=== PATIENT | female | born 1970 | race Caucasian/White ===

== ENCOUNTER 2017-11-17 10:24 | Inpatient (IN) | payer BC ==
[2017-11-17] MEDS ORDERED: ONDANSETRON 4 MG/2 ML VIAL ONE (11:38)
[2017-11-17] MEDS ORDERED: Ringers Lactate 1,000 ML IV ONE (11:38)
[2017-11-17] MEDS ORDERED: FENTANYL CITR 100 MCG/2 ML ONE (11:38)
[2017-11-17 11:45] LABS: Absolute Lymphocytes (CBC) 1.6 K/uL (0.7-4.9); Absolute Monocytes 0.6 K/uL (0.1-1.3); Absolute Neutrophil 12.7 K/uL (1.8-8.0); Basophils % 0.6 % (0-1.3); Eosinophils % 0.9 % (0-4.4); Hematocrit 43.6 % (36.0-45.0); Lymphocytes % 10.7 % (15.3-44.8); MCH 31.5 pg (27.0-35.0); MCV 92.2 fL (80-100); MPV 7.4 fL (7.6-11.3); Monocytes % 3.7 % (3.3-12.3); RBC Red Blood Cell Count 4.73 M/uL (3.86-4.86)
[2017-11-17 11:57] LABS: Albumin 3.3 g/dL (3.4-5.0); Bilirubin Direct 0.2 mg/dL (0-0.2); Bilirubin Total 0.7 mg/dL (0.2-1.0); Potassium 3.2 mmol/L (3.5-5.1); Protein, Total 7.2 g/dL (6.4-8.2)
[2017-11-17] MEDS ORDERED: HYDROMORPHONE HCL 1 MG/ML INJ ONE (12:43)
--- NOTE | 2017-11-17 12:43 | RAD REPORT ---
EXAM DESCRIPTION: CT - Abdomen Pelvis W Contrast - 11/17/2017 12:32 pm CLINICAL HISTORY: Abdominal pain radiating to the back, history of pancreatitis, prior hysterectomy and cholecystectomy COMPARISON: None. TECHNIQUE: Biphasic, helical CT imaging of the abdomen and pelvis was performed following 100 ml non -ionic IV contrast. No oral contrast administered. All CT scans are performed using dose optimization technique as appropriate and may include automated exposure control or mA/KV adjustment according to patient size. FINDINGS: No suspicious findings in the lung bases. No pericardial thickening or effusion. Liver shows a diffuse fatty infiltration pattern. No focal liver lesion identified. No splenic abnorm ality. Cholecystectomy clips are present. No biliary tree dilatation. Biliary tree diameter is normal for a post cholecystectomy patient. Duct stones can be occult. No solid or cystic mass of the pancreas. There is a moderate amount of fluid in stranding surrounding the entirety of the pancreas. This extends along the anterior right and left pararenal fascia. No nixon spicion for a duodenal or pancreatic mass. Minimal wall thickening of the duodenal C-loop. Symmetric renal function is seen with no hydronephrosis or suspicious renal mass. No pyelonephritis o r acute renal parenchymal process. Contracted urinary bladder shows no suspicious finding. Uterus is absent. Ovaries are absent or atrophic. No adnexal mass. No gastric abnormality. No acute colon finding. No free air or pneumatosis. No other area of inflamm atory stranding. No hernia, mass or bulky lymphadenopathy. No adrenal abnormality. No suspicious bony findings. IMPRESSION: Moderate severity acute pancreatitis. No mass, abscess or pseudocyst. Diffuse fatty infiltration of the liver. Biliary tree dilatation is within normal range for a post ch olecystectomy patient.
--- NOTE | 2017-11-17 12:59 | ER ---
Nurse's Notes [facility] Name: Pamela Machado Age: 47 yrs Sex: Female : 1970 Arrival Date: 11/17/2017 Time: 10:30 Bed 20 Private MD: Out, [facility] Diagnosis: Acute pancreatitis Presentation: 11/17 10:47 Presenting complaint: Patient states: " I am having bad abdominal pain that radiates to ph my back, it feels like when I've had pancreatitis in the past but worse." Reports upper abdominal pain and nausea, denies V/D or fever. Transition of care: patient was not received from another setting of care. Onset of symptoms was November 17, 2017. Risk Assessment: Do you want to hurt yourself or someone else? Patient reports no desire to harm self or others. Initial Sepsis Screen: Does the patient meet any 2 criteria? No. Patient's initial sepsis screen is negative. Does the patient have a suspected source of infection? No. Patient's initial sepsis screen is negative. Care prior to arrival: None. 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 - Social history:: Smoking status: Patient/guardian denies using tobacco. - Ebola Screening: : Patient negative for fever greater than or equal to 101.5 degrees Fahrenheit, and additional compatible Ebola Virus Disease symptoms Patient denies exposure to infectious person Patient denies travel to an Ebola-affected area in the 21 days before illness onset No symptoms or risks identified at this time. Screenin:57 Abuse screen: Denies threats or abuse. Denies injuries from another. Nutritional ed1 screening: No deficits noted. Tuberculosis screening: No symptoms or risk factors identified. Fall Risk None identified. Assessment: 10:57 General: Appears uncomfortable, Behavior is calm, cooperative. Pain: Complains of pain ed1 in abdomen Pain radiates to back Pain currently is 10 out of 10 on a pain scale. Quality of pain is described as sharp, shooting, stabbing, Pain began 1 day ago. Is continuous. Neuro: Level of Consciousness is awake, alert, obeys commands, Oriented to person, place, time, situation. Cardiovascular: Denies chest pain, Heart tones S1 S2 present. Respiratory: Airway is patent Respiratory effort is even, unlabored, Respiratory pattern is regular, symmetrical, Breath sounds are clear bilaterally. GI: Abdomen is non-distended, Bowel sounds present X 4 quads. Abd is soft and non tender X 4 quads. Reports nausea. : No signs and/or symptoms were reported regarding the genitourinary system. EENT: No signs and/or symptoms were reported regarding the EENT system. Derm: Skin is intact, is healthy with good turgor, Skin is pink, warm \\T\\ dry. Musculoskeletal: Circulation, motion, and sensation intact. Range of motion: intact in all extremities. 11:00 Reassessment: I agree with previous assessment. hb 12:08 Reassessment: Patient appears in no apparent distress at this time. No changes from ed1 previously documented assessment. Patient and/or family updated on plan of care and expected duration. Pain level reassessed. Patient is alert, oriented x 3, equal unlabored respirations, skin warm/dry/pink. Patient states symptoms have not improved. 12:35 Reassessment: Pt returned from CT and reports worsening abdominal pain. Ervin notified. ed1 No new orders received at this time. 14:06 Reassessment: Patient appears in no apparent distress at this time. No changes from ed1 previously documented assessment. Patient and/or family updated on plan of care and expected duration. Pain level reassessed. Patient is alert, oriented x 3, equal unlabored respirations, skin warm/dry/pink. Patient states symptoms have not improved. 14:08 Reassessment: Pt ambulatory to bathroom. Pt reports an episode of vomiting. ed1 14:45 Reassessment: Patient appears in no apparent distress at this time. No changes from ed1 previously documented assessment. Patient and/or family updated on plan of care and expected duration. Pain level reassessed. Patient is alert, oriented x 3, equal unlabored respirations, skin warm/dry/pink. Patient states symptoms have not improved. Vital Signs: 10:46 BP 115 / 77; Pulse 83; Resp 26; Temp 97.6; Pulse Ox 100% on R/A; Weight 89.81 kg; ph Height 5 ft. 0 in. (152.40 cm); Pain 10/10; 12:08 BP 122 / 80; Pulse 80; Resp 17; Pulse Ox 100% on R/A; Pain 9/10; ed1 14:06 BP 132 / 75; Pulse 80; Resp 17; Temp 98.4(O); Pulse Ox 100% on R/A; Pain 9/10; ed1 10:46 Body Mass Index 38.67 (89.81 kg, 152.40 cm) ph ED Course: 10:30 Patient arrived in ED. sb2 10:30 Out, of Town is Private Physician. sb2 10:48 Triage completed. ph 10:49 Ervin Harkins PA is PHCP. jmm 10:49 Malik Martinez MD is Attending Physician. jmm 10:51 Arm band placed on. ph 10:53 Bri Robertson LVN is Primary Nurse. ed1 10:57 Patient has correct armband on for positive identification. Placed in gown. Bed in low ed1 position. Call light in reach. 11:15 Inserted saline lock: 22 gauge in left antecubital area, using aseptic technique. Blood ed1 collected. 12:[address] via wheelchair. mw3 12:32 CT Abd/Pelvis - W/Contrast In Process Unspecified. EDMS 12:58 Aidee Duval MD is Hospitalizing Provider. jmm 14:17 No provider procedures requiring assistance completed. Patient admitted, IV remains in ed1 place. intact, No redness/swelling at site. Administered Medications: 11:47 Drug: Lactated Ringers Solution 1000 ml Route: IV; Rate: 1000 TKO; Site: left ph antecubital; 14:28 Follow up: IV Status: Completed infusion; IV Intake: 1000ml ed1 11:47 Drug: Zofran 4 mg Route: IVP; Site: left antecubital; ph 13:06 Follow up: Response: Nausea is decreased ed1 11:47 Drug: fentaNYL (PF) 50 mcg Route: IVP; Site: left antecubital; ph 13:06 Follow up: Response: Pain is unchanged, physician notified ed1 12:47 Drug: Dilaudid 1 mg Route: IVP; Site: left antecubital; ph 13:49 Follow up: Response: Pain is unchanged, physician notified ed1 Intake: 14:28 IV: 1000ml; Total: 1000ml. ed1 Outcome: 12:59 Decision to Hospitalize by Provider. jackie 14:45 Admitted to Med/surg accompanied by tech, family with patient, via wheelchair, room ed1 206, with chart, Report called to JORGE Moore 14:45 Condition: stable 14:45 Discharge instructions given to patient, Instructed on the need for admit, Demonstrated understanding of instructions. 14:48 Patient left the ED. ed1 Signatures: Dispatcher [employer] EDMS Ervin Harkins PA PA jm Bri Robertson, EMPLOYMENT PROGRAMS ANALYST EMPLOYMENT PROGRAMS ANALYST ed1 Elicia Iraheta RN RN Deneen Onofre, JORGE RN Yesica Todd sb2 Yancy Rojas mw3
--- NOTE | 2017-11-17 12:59 | EDPHYS ---
Physician Documentation [facility] Name: Pamela Machado Age: 47 yrs Sex: Female : 1970 Arrival Date: 11/17/2017 Time: 10:30 Bed 20 Private MD: Out, [facility] ED Physician Malik Martinez HPI: 11/17 11:12 This 47 yrs old Female presents to ER via Ambulatory with complaints of jmm Abdominal Pain. 11:12 The patient presents with abdominal pain in the epigastric area. Onset: The jmm symptoms/episode began/occurred gradually, 2 day(s) ago. The symptoms do not radiate. Associated signs and symptoms: Pertinent positives: nausea and vomiting. The symptoms are described as achy, sharp. This is a 47 year old female with a history of pancreatitis, HLP, hypothyroidism that presents to the ED with epigastric abdominal pain. Patient states having similar symptoms in the past with previous episodes of pancreatitis. . 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 - Social history:: Smoking status: Patient/guardian denies using tobacco. - Ebola Screening: : Patient negative for fever greater than or equal to 101.5 degrees Fahrenheit, and additional compatible Ebola Virus Disease symptoms Patient denies exposure to infectious person Patient denies travel to an Ebola-affected area in the 21 days before illness onset No symptoms or risks identified at this time. ROS: 11:18 Constitutional: Negative for fever, chills, and weight loss. jmm 11:18 Abdomen/GI: Positive for abdominal pain, nausea and vomiting. jmm 11:18 Back: Positive for radiated pain. 11:18 All other systems are negative. Exam: 11:18 Head/Face: atraumatic. Chest/axilla: Normal chest wall appearance and motion. jmm Cardiovascular: Regular rate and rhythm. No edema appreciated 11:18 Constitutional: The patient appears alert, awake, uncomfortable. 11:18 Respiratory: the patient does not display signs of respiratory distress, Respirations: normal, Breath sounds: are clear throughout. 11:18 Abdomen/GI: Inspection: abdomen appears normal, Bowel sounds: normal, Palpation: soft, moderate abdominal tenderness, in the right upper quadrant and left upper quadrant. 11:18 Back: ROM is normal. 11:18 Musculoskeletal/extremity: ROM: intact in all extremities. 11:18 Skin: Appearance: Color: normal in color. 11:18 Neuro: Orientation: is normal, Mentation: is normal, Memory: is normal. 11:18 Psych: Behavior/mood is pleasant, cooperative. Vital Signs: 10:46 BP 115 / 77; Pulse 83; Resp 26; Temp 97.6; Pulse Ox 100% on R/A; Weight 89.81 kg; ph Height 5 ft. 0 in. (152.40 cm); Pain 10/10; 12:08 BP 122 / 80; Pulse 80; Resp 17; Pulse Ox 100% on R/A; Pain 9/10; ed1 14:06 BP 132 / 75; Pulse 80; Resp 17; Temp 98.4(O); Pulse Ox 100% on R/A; Pain 9/10; ed1 10:46 Body Mass Index 38.67 (89.81 kg, 152.40 cm) ph MDM: 11:07 Patient medically screened. [facility] 12:57 Data reviewed: vital signs, nurses notes, lab test result(s), radiologic studies, CT [facility] scan. Counseling: I had a detailed discussion with the patient and/or guardian regarding: the historical points, exam findings, and any diagnostic results supporting the discharge/admit diagnosis, lab results, radiology results, the need for further work-up and treatment in the hospital. Response to treatment: the patient's symptoms have mildly improved after treatment. Physician consultation: Aidee Duval MD accepts admission. 11/17 11:09 Order name: Amylase, Serum; Complete Time: 12:16 [facility] 11/17 11:09 Order name: Basic Metabolic Panel; Complete Time: 12:16 [facility] 11/17 11:09 Order name: CBC with Diff; Complete Time: 11:49 [facility] 11/17 11:09 Order name: Creatinine for Radiology; Complete Time: 12:16 [facility] 11/17 11:09 Order name: Hepatic Function; Complete Time: 12:16 [facility] 11/17 11:09 Order name: Lipase; Complete Time: 12:16 [facility] 11/17 11:09 Order name: Urine Microscopic Only; Complete Time: 13:04 [facility] 11/17 12:56 Order name: Urine Dipstick--Ancillary (enter results); Complete Time: 13:04 dm5 11/17 13:46 Order name: Triglycerides Level; Complete Time: 15:11 EDMS 11/17 13:46 Order name: Amylase Level EDMS 11/17 13:46 Order name: Amylase Level EDMS 11/17 13:46 Order name: Amylase Level EDMS 11/17 13:46 Order name: Amylase Level EDMS 11/17 13:46 Order name: CBC with Automated Diff EDMS 11/17 11:09 Order name: CT Abd/Pelvis - W/Contrast; Complete Time: 12:46 [facility] 11/17 13:46 Order name: CBC with Automated Diff EDMS 11/17 13:46 Order name: CBC with Automated Diff EDMS 11/17 13:46 Order name: CBC with Automated Diff EDMS 11/17 13:46 Order name: Comprehensive Metabolic Panel EDMS 11/17 13:46 Order name: Comprehensive Metabolic Panel EDMS 11/17 13:46 Order name: Comprehensive Metabolic Panel EDMS 11/17 13:46 Order name: Comprehensive Metabolic Panel EDMS 11/17 13:46 Order name: Lipase EDMS 11/17 13:46 Order name: Lipase EDMS 11/17 13:46 Order name: Lipase EDMS 11/17 13:46 Order name: Lipase EDMS 11/17 13:46 Order name: Magnesium EDMS 11/17 13:46 Order name: Magnesium EDMS 11/17 14:36 Order name: LDL, Direct; Complete Time: 15:11 [facility] 11/17 11:09 Order name: IV Saline Lock; Complete Time: 12:08 [facility] 11/17 11:09 Order name: Labs collected and sent; Complete Time: 12:08 [facility] 11/17 11:09 Order name: Urine Dipstick-Ancillary (obtain specimen); Complete Time: 13:02 [facility] 11/17 13:46 Order name: NPO EDMS Administered Medications: 11:47 Drug: Lactated Ringers Solution 1000 ml Route: IV; Rate: 1000 TKO; Site: left ph antecubital; 14:28 Follow up: IV Status: Completed infusion; IV Intake: 1000ml ed1 11:47 Drug: Zofran 4 mg Route: IVP; Site: left antecubital; ph 13:06 Follow up: Response: Nausea is decreased ed1 11:47 Drug: fentaNYL (PF) 50 mcg Route: IVP; Site: left antecubital; ph 13:06 Follow up: Response: Pain is unchanged, physician notified ed1 12:47 Drug: Dilaudid 1 mg Route: IVP; Site: left antecubital; ph 13:49 Follow up: Response: Pain is unchanged, physician notified ed1 Disposition: 11/17/17 12:59 Hospitalization ordered by Aidee Duval for Observation. Preliminary diagnosis is Acute pancreatitis. - Bed requested for Telemetry/MedSurg (observation). - Status is Observation. ed1 - Condition is Stable. - Problem is new. - Symptoms are unchanged. UTI on Admission? No Addendum: 11/19/2017 19:52 Co-signature as Attending Physician, Malik Martinez MD I agree with the assessment and w a plan of care. Signatures: Dispatcher [employer] Nay Gonzales RN RN Ervin Whitney PA PA [facility] Bri Robertson, RAILS DEVELOPER RAILS DEVELOPER ed1 Elicia Iraheta RN RN Malik Martinez MD MD wa Corrections: (The following items were deleted from the chart) 11/17 14:10 12:59 Hospitalization Ordered by Aidee Duval MD for Observation. Preliminary diagnosis dw is Acute pancreatitis. Bed requested for Telemetry/MedSurg (observation). Status is Observation. Condition is Stable. Problem is new. Symptoms are unchanged. UTI on Admission? No. [facility] 14:48 14:10 11/17/2017 12:59 Hospitalization Ordered by Aidee Duval MD for Observation. ed1 Preliminary diagnosis is Acute pancreatitis. Bed requested for Telemetry/MedSurg (observation). Status is Observation. Condition is Stable. Problem is new. Symptoms are unchanged. UTI on Admission? No. dw
[2017-11-17 13:02] LABS: Urine Bacteria <20 /HPF (<20); Urine Culture Reflex Order NOT NEEDED; Urine Mucus 1+ /HPF (NONE SEEN); Urine RBC <5 /HPF (NONE SEEN)
[2017-11-17 13:03] LABS: Urine Blood NEGATIVE (NEG); Urine Glucose NEGATIVE (NEG); Urine Protein NEGATIVE (NEG); Urine Specific Gravity 1.015 (1.005-1.030)
[2017-11-17] MEDS ORDERED: ACETAMINOPHEN 650MG/RECT SUPP PR PRN (13:38)
[2017-11-17 14:36] LABS: LDL, Direct 98 mg/dL (100-129)
[2017-11-17] MEDS: NA CHLORIDE 0.9% 1,000 ML IV SCH ×2 (15:35→21:48)
[2017-11-17] MEDS: MEPERIDINE HCL 25 MG/0.5 ML IV PRN ×2 (15:36→19:39)
[2017-11-17] MEDS: ONDANSETRON 4 MG/2 ML VIAL IV PRN ×2 (15:36→19:39)
[2017-11-17] MEDS: METRONIDAZOLE 500mg IVPB 500 MG/100 ML BAG IV SCH (16:23)
[2017-11-17] MEDS: KCL 20 MEQ/100 mL IVPB 20 MEQ/100 ML BAG IV SCH ×2 (19:56→21:50)
[2017-11-17] MEDS ORDERED: FENTANYL CITR 100 MCG/2 ML IV ONE (21:16)
[2017-11-17] MEDS: ENOXAPARIN 40 MG/0.4 ML SQ SCH (21:42)
[2017-11-17 22:09] LABS: Urine Appearance CLEAR; Urine Bilirubin NEGATIVE (NEG); Urine Blood NEGATIVE (NEG); Urine Color DK YELLOW; Urine Glucose NEGATIVE (NEG); Urine Protein TRACE (NEG); Urine Specific Gravity >=1.030 (1.005-1.030); Urine Urobilinogen 0.2 mg/dL (0.2-1.0)
[2017-11-17 22:11] LABS: Urine Microscopic Reflex ORDER UMIC
[2017-11-17 22:20] LABS: Urine Bacteria <20 /HPF (<20); Urine RBC <5 /HPF (NONE SEEN)
[2017-11-17 22:21] LABS: Urine Culture Reflex Order NOT NEEDED; Urine Mucus 1+ /HPF (NONE SEEN)
[2017-11-17] MEDS: ALPRAZOLAM 0.25 MG TABLET PO PRN (22:53)
--- NOTE | 2017-11-18 00:42 | HP ---
Date of Admission: 11/17/2017 Primary Care Physician: [place]. Chief Complaint: Abdominal pain. History Of Present Illness: The patient is a 47-year-old female with past medical history of hyperli pidemia, insomnia, hypothyroidism, Malik's esophagus, previous history of pancreatitis who comes in with abdominal pain in the epigastric region, which is constant, moderate, progressively worsening, and going on for the past couple of days. The patient also reports some nausea but no vomiting, no f tavo. The patient does report some chills and sweats. Denies any diarrhea. No blood in the stool. No chest pain or shortness of breath. The patient's pain radiates to the left side and towards her back. No alleviating or aggravating factors. The patient denies any alcohol use. The patient came into the ER for further evaluation of her symptoms. Upon arrival, her vital signs were stable. She was afebrile. Her workup revealed lipase level of 5400. Potassium was 3.2. She had an elevated wh ite count. UA was negative. CT scan of the abdomen and pelvis showed moderate-severity acute pancre atitis. No abscess or pseudocyst. The patient did have some inflammation and wall thickening of the duodenal C loop. The patient was then referred for admission. When seen in the ER, she was awake, alert, oriented x3, in some moderate distress. Past Medical History: Insomnia, hyperlipidemia, hypothyroidism, Malik's esophagus, history of prev ious pancreatitis and diverticulitis. Past Surgical History: Cholecystectomy, x3, hysterectomy, tubal ligation, appendectomy, an d hernia repair. Allergies: TO LEVAQUIN, MORPHINE, AND PENICILLIN. Medications: List reviewed. Social History: The patient denies any alcohol use, tobacco use, or illicit drug use. The patient i s , has 3 children. Independent in her activities of daily living. Family History: Parents both had coronary artery disease. Mother at the age of 42 from complications of bypass surgery. Grandmother had pulmonary hypertension. Review of Systems: An 11-point system reviewed, negative except as per HPI. Physical Examination: Vital Signs: Blood pressure is 158/77, pulse 83, respirations 26, temperature 97.6, O2 100% on room air. General: Awake, alert, oriented x3, obese female, in pain, ill-appearing. HEENT: Normocephalic, atraumatic. PERRLA. EOMI. Dry mucous membranes. Oropharynx is clear. Conj unctiva anicteric. Neck: Supple. No JVD. Trachea midline. CV: S1, S2. Regular rate and rhythm. Peripheral pulses are present. Respiratory: Clear to auscultation bilaterally. No wheezing. No stridor. No use of accessory musc les. Gastrointestinal: Abdomen is soft. Tenderness to palpation in the epigastric region. Positive volu ntary guarding. No rebound. Bowel sounds positive. Extremities: No clubbing, cyanosis, or edema. No calf tenderness. Neuro: Cranial nerves 2 through 12 intact. No focal neurological deficit. Speech is normal. Stren gth is 5/5 in bilateral upper and lower extremities. Sensation intact to light touch. Skin: No rashes. Normal skin turgor. Psych: Mood is anxious. Affect is congruent with mood. Insight and judgment are fair. Laboratory Data: Sodium 135, potassium 3.2, chloride 103, CO2 24, BUN 7, creatinine 0.7, glucose 119 , calcium 8.2, total bilirubin 0.7, AST 37, ALT 40, alkaline phosphatase 120, albumin 3.3, amylase 15 0, lipase 5499. WBC 15.1, H and H 14.9 and 43.6, platelets 329, neutrophils 84%. UA is negative. C T scan of the abdomen and pelvis shows moderate-severity acute pancreatitis. No mass, abscess, or ps eudocyst. Diffuse fatty infiltration of the liver. Biliary tree dilatation is within normal range f or postcholecystectomy patient. Minimal wall thickening of the duodenal C-loop. Assessment: A 47-year-old female with; 1.Acute pancreatitis without infection or abscess. We will continue with IV fluids, IV pain medicat ions, n.p.o., possible clear liquids in a.m. We will start IV antibiotics as the patient's CT scan d oes show some inflammation around the duodenal C loop. 2.Obesity. 3.Hypokalemia. We will replace and monitor. We will check magnesium level. 4.Hyperlipidemia. 5.We will check triglyceride level as a cause of pancreatitis. 6.Insomnia. The patient takes Ambien at night. 7.Hypothyroidism. Continue Synthroid. 8.Malik's esophagus. Continue IV PPI. 9.Gastrointestinal and deep venous thrombosis prophylaxis with PPI and Lovenox. Plan: Admit the patient to Med-Surg, place as inpatient. No GI coverage available. We will continu e to monitor closely. If symptoms are not improving, may need MRCP or possible transfer if GI still not available. We will follow up a triglyceride level. LEAH Voice ID: [id number]
[2017-11-18] MEDS: ONDANSETRON 4 MG/2 ML VIAL IV PRN ×6 (00:58→21:29)
[2017-11-18] MEDS: METRONIDAZOLE 500mg IVPB 500 MG/100 ML BAG IV SCH ×3 (00:58→16:55)
[2017-11-18] MEDS: MEPERIDINE HCL 25 MG/0.5 ML IVP PRN ×6 (00:58→21:22)
[2017-11-18] MEDS: LEVOTHYROXINE SOD 0.075 MG TAB PO SCH (05:09)
[2017-11-18] MEDS: NA CHLORIDE 0.9% 1,000 ML IV SCH ×2 (05:10→09:10)
[2017-11-18 05:16] LABS: Absolute Lymphocytes (CBC) 1.1 K/uL (0.7-4.9); Absolute Monocytes 0.4 K/uL (0.1-1.3); Absolute Neutrophil 9.5 K/uL (1.8-8.0); Basophils % 0.2 % (0-1.3); Eosinophils % 0.2 % (0-4.4); Hematocrit 44.9 % (36.0-45.0); MCH 31.6 pg (27.0-35.0); MCV 92.6 fL (80-100); MPV 7.8 fL (7.6-11.3); Monocytes % 3.6 % (3.3-12.3); RBC Red Blood Cell Count 4.85 M/uL (3.86-4.86)
[2017-11-18 05:35] LABS: Albumin 2.5 g/dL (3.4-5.0); Bilirubin Total 0.5 mg/dL (0.2-1.0); Magnesium 1.6 mg/dL (1.8-2.4); Potassium 3.8 mmol/L (3.5-5.1); Protein, Total 5.9 g/dL (6.4-8.2)
[2017-11-18] MEDS ORDERED: MAGNESIUM SULFATE 1 gm IVPB 1 GM/100 ML BAG IV ONE (05:46)
[2017-11-18] MEDS ORDERED: KCL 20 MEQ/100 mL IVPB 20 MEQ/100 ML BAG IV SCH (06:00)
[2017-11-18 08:45] LABS: Anisocytosis SLIGHT; Blood Morphology Comment NOTED (NOT SEEN); Platelet Estimate ADEQ
[2017-11-18] MEDS: METOPROLOL XL 50 MG TAB PO SCH (09:00)
[2017-11-18] MEDS ORDERED: Ringers Lactate 500 ML IV ONE (12:46)
[2017-11-18] MEDS: PANTOPRAZOLE 40 MG INJ IVP SCH (13:23)
[2017-11-18] MEDS: Ringers Lactate 1,000 ML IV SCH ×3 (13:23→21:26)
[2017-11-18] MEDS: ACETAMINOPHEN 500 MG TAB PO PRN (16:53)
--- NOTE | 2017-11-18 18:24 | PN ---
Date of Progress Note: 11/18/2017 The patient is seen and examined. Chart reviewed and case discussed with RN and Dr. Sofia. The patie nt states she feels slightly better. No further vomiting. Did report some nausea. Review of Systems: Negative except as above. Medications: List reviewed. Physical Examination: Vital Signs: Temperature 95.4, pulse 89, respirations 12, blood pressure 116/69, saturations 96% on room air. General: Awake, alert, oriented. Some mild distress. Morbidly obese female. CV: S1, S2. No murmurs. Regular rate and rhythm. Peripheral pulse is present. Respiratory: Clear to auscultation bilaterally. No wheezing. Gastrointestinal: Abdomen is soft. Moderate tenderness to palpation in the epigastric region. No r ebound. Some voluntary guarding is present. Bowel sounds positive. Extremities: No clubbing, cyanosis, or edema. Neurologic: Nonfocal. Laboratory Data: Sodium 138, potassium 3.8, chloride 107, CO2 of 25, BUN 7, creatinine 0.7, glucose 107, calcium 7.4, magnesium 1.6, AST 40, ALT 28, albumin 2.5, triglycerides 768, amylase 268, lipase 5530. WBC 11, H and H 15.3 and 44.9, and platelets 380, neutrophils 86%. Assessment And Plan: A 47-year-old female with. 1.Acute pancreatitis. We will continue IV fluids and IV pain medications have been adjusted. We wi ll start on clear liquid diet. GI has been consulted. 2.Obesity, BMI 38.7. 3.Hypokalemia, replaced. Continue to monitor. 4.Hypomagnesemia. We will replace and monitor. 5.Hyperlipidemia with triglyceridemia, improving. 6.Insomnia. Continue Ambien. 7.Hypothyroidism, Synthroid. 8.History of Malik's esophagus. We will continue IV PPI. 9.Gastrointestinal and deep venous thrombosis prophylaxis with PPI and Lovenox. Plan: Advance to clear liquid diet and continue to monitor. Continue IV antibiotics for possible du odenal infection. We will follow up with GI recommendations. /RICK Voice ID: [id number] Report ID: [id number]
[2017-11-18] MEDS: ENOXAPARIN 40 MG/0.4 ML SQ SCH (21:21)
[2017-11-18] MEDS: ALPRAZOLAM 0.25 MG TABLET PO PRN (21:22)
[2017-11-19] MEDS: METRONIDAZOLE 500mg IVPB 500 MG/100 ML BAG IV SCH ×3 (00:26→17:00)
[2017-11-19] MEDS: ZOLPIDEM TARTRATE 5 MG TABLET PO PRN ×2 (00:26→21:06)
[2017-11-19] MEDS: MEPERIDINE HCL 25 MG/0.5 ML IVP PRN ×3 (03:03→19:51)
[2017-11-19] MEDS: ONDANSETRON 4 MG/2 ML VIAL IV PRN ×5 (03:03→19:51)
[2017-11-19] MEDS: Ringers Lactate 1,000 ML IV SCH ×4 (03:06→19:51)
[2017-11-19 06:39] LABS: Absolute Lymphocytes (CBC) 0.9 K/uL (0.7-4.9); Absolute Monocytes 0.5 K/uL (0.1-1.3); Absolute Neutrophil 8.8 K/uL (1.8-8.0); Basophils % 0.2 % (0-1.3); Eosinophils % 0.8 % (0-4.4); Hematocrit 41.8 % (36.0-45.0); MCH 31.6 pg (27.0-35.0); MCV 91.7 fL (80-100); MPV 8.3 fL (7.6-11.3); Monocytes % 4.4 % (3.3-12.3); RBC Red Blood Cell Count 4.56 M/uL (3.86-4.86)
[2017-11-19] MEDS: LEVOTHYROXINE SOD 0.075 MG TAB PO SCH (06:58)
[2017-11-19 06:59] LABS: ALT/SGPT 14 U/L (12-78); AST/SGOT 17 U/L (15-37); Albumin 1.9 g/dL (3.4-5.0); Alkaline Phosphatase 59 U/L (45-117); Amylase Level 83 U/L (25-115); BUN Blood Urea Nitrogen 5 mg/dL (7-18); Bicarbonate 23 mmol/L (21-32); Bilirubin Total 0.6 mg/dL (0.2-1.0); Glucose Level 92 mg/dL (74-106); Lipase 1672 U/L (73-393); Magnesium 1.5 mg/dL (1.8-2.4); Potassium 3.6 mmol/L (3.5-5.1); Protein, Total 5.3 g/dL (6.4-8.2); Sodium Level 134 mmol/L (136-145)
[2017-11-19] MEDS ORDERED: Magnesium Sulfate 2gm IVPB 2 G/50 ML BAG IV ONE ×2 (07:03→09:00)
[2017-11-19] MEDS ORDERED: POTASSIUM CL SA 10 MEQ TAB PO ONE (07:05)
[2017-11-19] MEDS: METOPROLOL XL 50 MG TAB PO SCH (08:36)
[2017-11-19] MEDS: PANTOPRAZOLE 40 MG INJ IVP SCH (08:36)
[2017-11-19] MEDS: Magnesium Sulfate 1gm IVPB 1 GM/50 ML BAG IV SCH ×2 (09:38→10:53)
[2017-11-19] MEDS: HYDROCODONE/APAP 5/325 MG TAB PO PRN ×3 (10:53→22:09)
--- NOTE | 2017-11-19 12:28 | PN ---
Date of Progress Note: 11/19/2017 Subjective: The patient seen and examined, chart reviewed and case discussed with RN. The patient states her pain is improved. We will start weaning off IV pain medications. Case discussed with Dr. Bates. The patient able to tolerate clear liquids. Review of Systems: Negative except as above. Medications: List reviewed. Objective: Vital Signs: Temperature 97.7, heart rate 98, blood pressure 129/66 , respirations 18, and O2 94% on room air. General: Awake, alert, oriented x3, not in any acute distress. Slightly ill- appearing female, obese. BMI 38.7. CV: S1, S2. No murmurs. Regular rate and rhythm. Peripheral pulses present. Respiratory: Clear to auscultation bilaterally. No wheezing. No stridor. Gastrointestinal: Abdomen is soft. Mild tenderness to palpation in epigastric region. No rebound or guarding. Extremities: No clubbing, cyanosis, or edema. Neurologic: Nonfocal. Laboratory Data: Sodium 134, potassium 3.6, chloride 103, CO2 23, BUN 5, creatinine 0.5, glucose 92, calcium 7.5, albumin 1.9, magnesium 1.5, lipase 1672 , and amylase 83. WBC 10.3, H and H 14.4 and 41.8, platelets 259, and neutrophils 85%. Assessment: A 47-year-old female with; 1. Acute pancreatitis. Continue IV fluids. Adjust IV pain medications. Add p.o. pain medications and decrease Demerol. Advance to full liquid diet. Appreciate GI input. CT showed duodentitis. Continue IV Abx 2. Obesity. Body mass index 38.7. 3. Hypomagnesemia. We will replace and monitor. 4. Triglyceridemia, improving. We will recheck level in a.m. The patient may be a good candidate for Repatha. 5. Insomnia. Continue Ambien. 6. Hypothyroidism, Synthroid. 7. History of Malik's esophagus. Switch PPI to p.o. 8. Gastrointestinal and deep venous thrombosis prophylaxis with PPI and Lovenox. Plan: Advance diet. Discharge in the next 24-48 hours if continues to improve. /RICK Voice ID: [id number] Report ID: [id number] IAN
[2017-11-19] MEDS: ALPRAZOLAM 0.25 MG TABLET PO PRN (18:11)
[2017-11-19] MEDS: ENOXAPARIN 40 MG/0.4 ML SQ SCH (20:04)
[2017-11-20] MEDS: METRONIDAZOLE 500mg IVPB 500 MG/100 ML BAG IV SCH ×2 (00:20→09:24)
[2017-11-20] MEDS: Ringers Lactate 1,000 ML IV SCH ×4 (02:20→20:35)
[2017-11-20] MEDS: HYDROCODONE/APAP 5/325 MG TAB PO PRN ×2 (02:49→06:32)
[2017-11-20 05:10] LABS: Absolute Lymphocytes (CBC) 0.6 K/uL (0.7-4.9); Absolute Monocytes 0.5 K/uL (0.1-1.3); Absolute Neutrophil 8.6 K/uL (1.8-8.0); Basophils % 0.1 % (0-1.3); Eosinophils % 0.4 % (0-4.4); Lymphocytes % 6.6 % (15.3-44.8); MCV 92.2 fL (80-100); MPV 7.9 fL (7.6-11.3); Monocytes % 5.4 % (3.3-12.3); RBC Red Blood Cell Count 3.58 M/uL (3.86-4.86)
[2017-11-20 05:26] LABS: ALT/SGPT 14 U/L (12-78); AST/SGOT 19 U/L (15-37); Alkaline Phosphatase 56 U/L (45-117); Amylase Level 44 U/L (25-115); BUN Blood Urea Nitrogen 3 mg/dL (7-18); Bicarbonate 26 mmol/L (21-32); Bilirubin Total 0.4 mg/dL (0.2-1.0); Glucose Level 93 mg/dL (74-106); Lipase 667 U/L (73-393); Potassium 3.8 mmol/L (3.5-5.1); Protein, Total 5.5 g/dL (6.4-8.2); Sodium Level 133 mmol/L (136-145)
[2017-11-20] MEDS: PANTOPRAZOLE 40MG TABLET PO SCH (05:42)
[2017-11-20] MEDS: LEVOTHYROXINE SOD 0.075 MG TAB PO SCH (05:42)
[2017-11-20] MEDS ORDERED: POTASSIUM CL SA 10 MEQ TAB PO ONE (06:30)
[2017-11-20] MEDS: MEPERIDINE HCL 25 MG/0.5 ML IVP PRN ×4 (09:24→21:32)
[2017-11-20] MEDS: METOPROLOL XL 50 MG TAB PO SCH (09:24)
[2017-11-20] MEDS: ONDANSETRON 4 MG/2 ML VIAL IV PRN ×3 (09:24→21:32)
--- NOTE | 2017-11-20 11:27 | P.PN ---
Subjective Date of Service: 11/20/17 Chief Complaint: Pancreatitis Patient is still complaining of abdominal pain as gotten worse since the dose of her narcotics were reduced patient does not take any pain med at home Review of Systems Gastrointestinal: Abdominal Pain Physical Examination - Vital Signs Temperature: 97.7 F Blood Pressure: 139/66 Pulse: 91 Respirations: 18 Pulse Ox (%): 96 - Physical Exam General: Alert, Moderate distress Neck: Supple Respiratory: Clear to auscultation bilaterally Gastrointestinal: Tenderness (Patient has mild diffuse tenderness) Assessment & Plan - Problems (Diagnosis) (1) Acute pancreatitis Onset Date: 11/18/17 Current Visit: Yes Status: Acute Plan: Patient is 47 years of age admitted with acute pancreatitis her enzymes are declining still continues to complain of abdominal pain is not tolerating diet will try ensureincreased pain medications no evidence of sepsis Flagyl discontinued patient is status post cholecystectomy Qualifiers: Pancreatitis type: unspecified pancreatitis type
--- NOTE | 2017-11-20 19:51 | RAD REPORT ---
EXAM DESCRIPTION: CT - Abdomen Pelvis Wo Contrast - 11/20/2017 7:08 pm CLINICAL HISTORY: Abdominal pain COMPARISON: November 17, 2017 TECHNIQUE: Computed axial tomography of the abdomen and pelvis was obtained. IV was not requested. O ral contrast was given. Coronal reconstructions performed. All CT scans are performed using dose optimization technique as appropriate and may include automated exposure control or mA/KV adjustment according to patient size. FINDINGS: The evaluation of solid organs and vessels is limited secondary to the lack of contrast a dministration. The amount of peripancreatic stranding and ill-defined fluid has mildly worsened since the prior exam . Fluid extends into the anterior pararenal spaces bilaterally. A moderate amount of ascites is prese nt within the pelvis. A discrete pseudocyst is not seen. A small amount of ascites is present within the abdomen. A small left pleural effusion with left lower lobe atelectasis has developed. Fatty infiltration liver is present. The spleen, adrenals and kidneys appear grossly normal. There is no evidence of diverticulitis. Diffuse edema is present within the subcutaneous tissues. IMPRESSION: Worsening in pancreatitis which is escbbhve-kb-emlipz. Moderate amount of pelvic ascites has developed.
[2017-11-20] MEDS: ENOXAPARIN 40 MG/0.4 ML SQ SCH (20:28)
[2017-11-20] MEDS: ALPRAZOLAM 0.25 MG TABLET PO PRN (20:28)
[2017-11-20] MEDS: ZOLPIDEM TARTRATE 5 MG TABLET PO PRN (22:40)
[2017-11-21] MEDS: Ringers Lactate 1,000 ML IV SCH ×3 (00:19→11:40)
[2017-11-21] MEDS: MEPERIDINE HCL 25 MG/0.5 ML IVP PRN ×6 (01:25→21:33)
[2017-11-21] MEDS: ONDANSETRON 4 MG/2 ML VIAL IV PRN ×6 (01:31→21:33)
[2017-11-21 05:10] LABS: BUN Blood Urea Nitrogen 3 mg/dL (7-18); Bicarbonate 25 mmol/L (21-32); Glucose Level 72 mg/dL (74-106); Potassium 3.7 mmol/L (3.5-5.1); Sodium Level 133 mmol/L (136-145)
[2017-11-21] MEDS: PANTOPRAZOLE 40MG TABLET PO SCH (05:53)
[2017-11-21] MEDS: LEVOTHYROXINE SOD 0.075 MG TAB PO SCH (05:54)
[2017-11-21] MEDS ORDERED: KCL 20 MEQ/100 mL IVPB 20 MEQ/100 ML BAG IV SCH (06:00)
--- NOTE | 2017-11-21 09:51 | P.PN ---
Subjective Date of Service: 11/21/17 Chief Complaint: Pancreatitis Patient is feeling slightly better today repeat CT scan shows worsening pancreatitis patient is on scheduled doses of narcotics currently NPO Review of Systems General: Weakness Gastrointestinal: Nausea, Abdominal Pain Physical Examination - Vital Signs Temperature: 97.2 F Blood Pressure: 148/83 Pulse: 84 Respirations: 24 Pulse Ox (%): 96 - Physical Exam General: Alert, Oriented x3 Neck: Supple Cardiovascular: No edema, Regular rate/rhythm Gastrointestinal: Hypoactive, Tenderness (Generalized tenderness) Assessment & Plan - Problems (Diagnosis) (1) Acute pancreatitis Onset Date: 11/18/17 Current Visit: Yes Status: Acute Plan: Patient is 47 years of age admitted with pancreatitis slight worsening still complaining of abdominal pain NPO apart from ice chips was start on TPN/PPN Qualifiers: Pancreatitis type: unspecified pancreatitis type
[2017-11-21] MEDS: ACETAMINOPHEN 500 MG TAB PO PRN (09:52)
[2017-11-21] MEDS: METOPROLOL XL 50 MG TAB PO SCH (09:52)
[2017-11-21] MEDS ORDERED: DEXTROSE 10%-WATER 500 ML IV SCH (13:00)
[2017-11-21] MEDS: AA 4.25%/D10W/ELECTROLYTES 2,000 ML, Lipids 20% 250 ML with MULTIVITAMINS INJ 10 ML IV SCH ×3 (17:00)
[2017-11-21] MEDS: ALPRAZOLAM 0.25 MG TABLET PO PRN (20:43)
[2017-11-21] MEDS: ENOXAPARIN 40 MG/0.4 ML SQ SCH (20:43)
[2017-11-21] MEDS: ZOLPIDEM TARTRATE 5 MG TABLET PO PRN (22:56)
[2017-11-22] MEDS: ONDANSETRON 4 MG/2 ML VIAL IV PRN ×5 (01:35→18:00)
[2017-11-22] MEDS: MEPERIDINE HCL 25 MG/0.5 ML IVP PRN ×6 (01:38→21:58)
[2017-11-22 05:35] LABS: BUN Blood Urea Nitrogen 5 mg/dL (7-18); Bicarbonate 27 mmol/L (21-32); Glucose Level 111 mg/dL (74-106); Potassium 3.5 mmol/L (3.5-5.1); Sodium Level 134 mmol/L (136-145)
[2017-11-22] MEDS: PANTOPRAZOLE 40MG TABLET PO SCH (05:38)
[2017-11-22] MEDS: LEVOTHYROXINE SOD 0.075 MG TAB PO SCH (05:38)
[2017-11-22] MEDS ORDERED: POTASSIUM CL SA 10 MEQ TAB PO ONE (06:10)
[2017-11-22] MEDS: METOPROLOL XL 50 MG TAB PO SCH (09:43)
[2017-11-22] MEDS: HYDROCODONE/APAP 5/325 MG TAB PO PRN ×3 (11:41→19:34)
--- NOTE | 2017-11-22 14:05 | PN ---
Date of Progress Note: 11/22/2017 Subjective: The patient seen and examined, chart reviewed, and case discussed with GI. The patient states she is still having pain. Over the weekend, was started on TPN and is currently n.p.o. Does report some nausea. No vomiting. Review of Systems: Negative except as above. Medications: List reviewed. Objective: Vital Signs: Temperature 98.4, heart rate 82, blood pressure 134/71, respirations 18, an d O2 94% on room air. General: Awake, alert, oriented x3. Some mild distress. Ill-appearing female, obese, BMI 38.7. CV: S1, S2. No murmurs. Regular rate and rhythm. Peripheral pulses present. Respiratory: Clear to auscultation bilaterally. No wheezing. No stridor. No use of accessory musc les. Gastrointestinal: Abdomen is soft. Mild tenderness to palpation. No rebound or guarding. Positive bowel sounds. Extremities: No clubbing, cyanosis, or edema. Neurologic: Nonfocal. Laboratory Data: Sodium 134, potassium 3.5, chloride 101, CO2 27, BUN 5, creatinine 0.3, glucose 111 , calcium 8.2. Lipase is 301. CT scan abdomen and pelvis personally reviewed, shows worsening of pa ncreatitis, which is moderate to marked. Moderate amount of pelvic ascites has developed. Assessment: A 47-year-old female with; 1.Acute pancreatitis. Lipase has normalized. Still complaining of abdominal pain, nausea. Wants m ore pain medications and asking for anxiety medication. The patient was started on TPN over the week end. GI on board. We will attempt to start on clear liquids. 2.Obesity. Body mass index 38.7. 3.Hypomagnesemia, replaced. 4.Triglyceridemia. Have come down significantly to 351. 5.Insomnia. Continue Ambien. 6.Adjustment disorder with anxious mood. The patient asking for something for anxiety. We will giv e trial of Xanax. 7.History of Malik's esophagus. PPI. 8.Gastrointestinal and deep venous thrombosis prophylaxis, PPI and Lovenox. Plan: Advance diet. Follow up with GI recommendations. /RICK Voice ID: [id number] Report ID: [id number]
[2017-11-22] MEDS: AA 4.25%/D10W/ELECTROLYTES 2,000 ML, Lipids 20% 250 ML with MULTIVITAMINS INJ 10 ML IV SCH ×3 (17:00)
--- NOTE | 2017-11-22 17:26 | PN ---
Date of Progress Note: 11/22/2017 A 47-year-old female, Dr. Duval. Problem List: 1.Acute pancreatitis. 2.Abdominal pain. 3.Bloated. Subjective: Ms. Machado states that she is feeling much better. She had had pancreatitis in the pas t. However, according to hear, this pancreatitis was the worst one. She denies any hematemesis, ron [place], or hematochezia. She tried some liquid diet, felt little bit bloated, as a result, she stopped, however, no nausea vomiting, today. She also has a normal bowel movement. No fever chills. Upon arriving in the room, the patient is working in her computer. No acute distress noted. Objective: Vital Signs: Hemodynamic and respiratory profile within normal range. HEENT: Atraumatic, normocephalic. No icterus. No pallor noted. Abdomen: Significantly soft, nondistended. Bowel sounds are excellent. No rebound tenderness. No hepatomegaly. No splenomegaly. Neurologic: Alert and oriented x3. Intact memory, mentation, and judgment. Diagnostic Data: Reviewed, analyzed, and discussed with the patient. Impression, Plan, And Recommendation: Ms. Machado is a 47-year-old female with acute on chronic panc reatitis. She is feeling better. Physical examination is very good. She still states that she need s IV pain medication. I believe that in this case, we can push for her p.o. intake, which is now day s recommendation. If she does it, we can stop her TPN. Overall she appears to be on the right traje ctory. If her clinical course changes give us a call. Otherwise for the time being, we will sign her off. I have educated her regarding disease process. She is quite intelligen t. Has good understanding. NAFISA/ONELL Voice ID: [id number] Report ID: [id number]
[2017-11-22] MEDS: ENOXAPARIN 40 MG/0.4 ML SQ SCH (20:09)
[2017-11-22] MEDS: ALPRAZOLAM 0.25 MG TABLET PO PRN (21:58)
[2017-11-23] MEDS: HYDROCODONE/APAP 5/325 MG TAB PO PRN ×4 (00:13→18:11)
[2017-11-23] MEDS: ZOLPIDEM TARTRATE 5 MG TABLET PO PRN (00:13)
[2017-11-23] MEDS: ONDANSETRON 4 MG/2 ML VIAL IV PRN ×4 (00:13→18:11)
[2017-11-23] MEDS: MEPERIDINE HCL 25 MG/0.5 ML IVP PRN ×3 (02:13→10:17)
[2017-11-23 05:21] LABS: Absolute Lymphocytes (CBC) 0.9 K/uL (0.7-4.9); Absolute Monocytes 1.2 K/uL (0.1-1.3); Absolute Neutrophil 8.4 K/uL (1.8-8.0); Basophils % 0.2 % (0-1.3); Eosinophils % 1.9 % (0-4.4); Hematocrit 30.5 % (36.0-45.0); Lymphocytes % 8.4 % (15.3-44.8); MCH 32.3 pg (27.0-35.0); MCV 92.2 fL (80-100); MPV 8.1 fL (7.6-11.3); Monocytes % 11.4 % (3.3-12.3); RBC Red Blood Cell Count 3.31 M/uL (3.86-4.86)
[2017-11-23 05:33] LABS: BUN Blood Urea Nitrogen 3 mg/dL (7-18); Bicarbonate 27 mmol/L (21-32); Glucose Level 122 mg/dL (74-106); Magnesium 2.2 mg/dL (1.8-2.4); Potassium 3.6 mmol/L (3.5-5.1); Sodium Level 134 mmol/L (136-145)
[2017-11-23] MEDS: PANTOPRAZOLE 40MG TABLET PO SCH (06:02)
[2017-11-23] MEDS: LEVOTHYROXINE SOD 0.075 MG TAB PO SCH (06:02)
[2017-11-23] MEDS ORDERED: POTASSIUM 25 MEQ EFFERV TAB PO ONE (06:11)
[2017-11-23] MEDS: METOPROLOL XL 50 MG TAB PO SCH (08:21)
--- NOTE | 2017-11-23 13:12 | PN ---
Date of Progress Note: 11/23/2017 Subjective: The patient was seen and examined, chart reviewed, and case discussed with RN and Dr. Ludivina carrasco. The patient was advanced to clear liquids yesterday and taken off TPN. The patient tolerati ng liquid diet well. No further nausea or vomiting. Still complained of some abdominal bloating and anxiety. Review of Systems: Negative except as above. Medications: List reviewed. Objective: Vital Signs: Temperature 97.2, heart rate 84, blood pressure 130/71, respirations 18, O2 96% on room air. General: Awake, alert, oriented x3. Some mild distress. Ill-appearing female, morbidly obese. CV: S1, S2. No murmurs. Regular rate and rhythm. Peripheral pulses present. Respiratory: Moving air well bilaterally. No wheezing. Gastrointestinal: Abdomen is soft. Mild tenderness to palpation in the epigastric region. No rebou nd, guarding, or rigidity. Bowel sounds positive. Extremities: No clubbing, cyanosis, edema. Neurologic: Nonfocal. Laboratory Data: Sodium 134, potassium 3.6, chloride 100, CO2 27, BUN 3, creatinine 0.4, glucose 122 , calcium 8.4, magnesium 2.2. WBC 10.8, H and H 10.7, 30.5, platelets 310, neutrophils 78%. Assessment: A 47-year-old female with; 1.Acute pancreatitis without infection or necrosis. We will advance diet. 2.Obesity. Body mass index 38.7. 3.Hypertriglyceridemia, improved. 4.Insomnia. Continue Ambien. 5.Adjustment disorder with anxious mood. Benzos p.r.n. 6.History of Malik's esophagus. Continue PPI. 7.Gastrointestinal and deep venous thrombosis prophylaxis with PPI and Lovenox. Plan: Advance diet to full liquids and bland diet. If tolerating, then discharge in the next 24 hoda ferguson SA/RICK Voice ID: [id number] Report ID: [id number]
--- NOTE | 2017-11-24 04:25 | DS ---
Date of Discharge: 11/23/2017 Consultants: 1.Rosy Sofia M.D.; GI. 2.Jairo Bates M.D.; GI. Admitting Diagnoses: 1.Acute pancreatitis. 2.Hypertriglyceridemia. 3.Obesity, body mass index 38.7. 4.Anxiety disorder. 5.Hypokalemia. 6.Insomnia. 7.Hypothyroidism. 8.Malik esophagus. Discharge Diagnoses: 1.Acute pancreatitis without infection or abscess. 2.Mild duodenitis. 3.Obesity, body mass index 38.7. 4.Hypokalemia, replaced. 5.Hyperlipidemia, mixed. 6.Hypertriglyceridemia. 7.Insomnia. 8.Hypothyroidism. 9.Malik esophagus. Hospital Course: The patient is a 47-year-old female who was admitted to the hospital with acute costello creatitis. CT scan showed moderate inflammation of the pancreas. Also showed some inflammation arou nd the duodenal C loop. The patient was started on IV antibiotics and IV fluids. She was kept n.p.o . GI was consulted. The patient initially did well. Her pancreatitis was secondary to hypertriglyc eridemia with triglyceride level of 1778, which trended down. The patient's lipase level was initial ly 5499, also trended down and normalized. The patient was seen by GI; her diet was advanced and she did well. Her white count normalized. However, she again had bouts of nausea, vomiting, and worsen ing abdominal pain. The patient was then started on TPN and was slowly reintroduced to a diet. The patient had significant improvement and was able to tolerate a GI soft diet. She was then cleared fr om GI standpoint and was discharged home in a stable condition. Activity: No driving or operating heavy machinery while on narcotics. Condition: Fair. Diet: [place]. Followup: Follow up with primary care physician in 2-3 days. Follow up with GI, Dr. Sofia, in 2 week s. Return to ER for worsening condition. Medications: As per medication reconciliation list. Total time spent discharging the patient was 36 minutes. Physical Examination: For physical exam findings, please see the progress note dictated on the day of discharge. /RICK Voice ID: [id number] Report ID: [id number]
== END 2017-11-23 19:45 | disposition home or self-care (01) | DRG 440 ==
LOC: ER 10:24 → ERHOLD 14:06 → 2ND 14:41 → OBSVTOIN 11-18 08:22
PROVIDERS: ADMIT Family Medicine; ATTEND Family Medicine
DX: K85.90 Acute pancreatitis without necrosis or infection, unspecified (principal); E78.1 Pure hyperglyceridemia; E66.9 Obesity, unspecified; Z68.38 Body mass index [BMI] 38.0-38.9, adult; E87.6 Hypokalemia; G47.00 Insomnia, unspecified; E03.9 Hypothyroidism, unspecified; K22.70 Barrett's esophagus without dysplasia; K29.80 Duodenitis without bleeding; E78.2 Mixed hyperlipidemia; Z88.1 Allergy status to other antibiotic agents; Z88.5 Allergy status to narcotic agent; Z88.0 Allergy status to penicillin; E83.42 Hypomagnesemia; F43.22 Adjustment disorder with anxiety
CPT/HCPCS: 36415; 74176; 74177; 80048; 80053; 80076; 81003; 81015; 82150; 83690; 83735; 84478; 85025; 94760; 96374; 96375; 99285; C9113; G0378; J1170; J1650; J2175; J2405; J3010; J3475; J7030; Q9967

== ENCOUNTER 2021-02-16 06:02 | Emergency (ER) | payer BC, SELFPAY ==
[2021-02-16] MEDS ORDERED: LORAZEPAM 1 MG TABLET ONE (07:07)
[2021-02-16] MEDS ORDERED: HYDROCODONE/APAP 5/325 MG TAB ONE (07:08)
--- NOTE | 2021-02-16 07:51 | RAD REPORT ---
EXAM DESCRIPTION: CT - Head C Spine Mpr Wo Con - 02/16/2021 7:31 am CLINICAL HISTORY: Head and neck injury status post fall. Head and neck pain COMPARISON: None. TECHNIQUE: Computed axial tomography of the head and cervical spine was obtained. Sagittal and coronal reconstruction was performed. All CT scans are performed using dose optimization technique as appropriate and may include automated exposure control or mA/KV adjustment according to patient size. FINDINGS: An intracranial bleed is not seen. Mild to moderate low-density areas within periventricular, deep and subcortical white matter probably ischemic changes secondary to small vessel disease. The ventricles are normal in caliber. An extra-axial fluid collection is not noted.Fluid within the v isualized sinuses and mastoids is not seen A cervical fracture is not visualized. No dislocation is noted. Scoliosis is present IMPRESSION: No acute intracranial abnormality is seen. A cervical fracture is not visualized. If the patient continues to have symptoms to suggest intracra nial /spinal cord pathology then MRI would be recommended
--- NOTE | 2021-02-16 08:47 | RAD REPORT ---
EXAM DESCRIPTION: CT - Facial Bones W/ Mpr - 02/16/2021 8:29 am CLINICAL HISTORY: Facial injury status post fall. Facial pain COMPARISON: None TECHNIQUE: Computed axial tomography of the face was obtained. Coronal and sagittal reconstruction w as performed. All CT scans are performed using dose optimization technique as appropriate and may include automated exposure control or mA/KV adjustment according to patient size. FINDINGS: Depressed left orbital floor fracture. Fragment is depressed 12 millimeters into the maxil erika sinus. The left inferior rectus muscle extends into the maxillary sinus. Blood is present within the maxillary sinus. Chip fracture nasal process of the maxilla. A TMJ dislocation is not noted. The globes are intact. IMPRESSION: Depressed left orbital floor fracture
--- NOTE | 2021-02-16 08:55 | RAD REPORT ---
EXAM DESCRIPTION: CT - Head C Spine Mpr Wo Con - 02/16/2021 8:29 am CLINICAL HISTORY: Head and neck injury status post fall. Head and neck pain COMPARISON: None. TECHNIQUE: Computed axial tomography of the head and cervical spine was obtained. Sagittal and coronal reconstruction was performed. All CT scans are performed using dose optimization technique as appropriate and may include automated exposure control or mA/KV adjustment according to patient size. FINDINGS: An intracranial bleed is not seen. The ventricles are normal in caliber. An extra-axial fl uid collection is not noted. A cervical fracture is not visualized. No dislocation is noted. IMPRESSION: No acute intracranial abnormality is seen. A cervical fracture is not visualized. If the patient continues to have symptoms to suggest intracra nial /spinal cord pathology then MRI would be recommended
[2021-02-16] MEDS ORDERED: FENTANYL CITR 100 MCG/2 ML ONE (10:44)
--- NOTE | 2021-02-16 11:20 | ER ---
Nurse's Notes [facility] Name: Pamela Machado Age: 50 yrs Sex: Female : 1970 Arrival Date: 02/16/2021 Time: 06:03 Bed 15 Private MD: Diagnosis: Fracture of orbital floor-Entrapment Presentation: 02/16 06:24 Chief complaint: Patient states: PT reports getting up out of bed to use bathroom and bc5 "tripping over something and hitting my face on a book shelf or box I'm not really sure" Pt denies LOC but reports she was "slow to get up" When I got to bathroom I ended up having diarrhea" A\\T\\O x 3, RR is even and unlabored, speaking in clear and complete sentences at this time. Coronavirus screen: Vaccine status: Patient reports being unvaccinated. Ebola Screen: Patient negative for fever greater than or equal to 101.5 degrees Fahrenheit, and additional compatible Ebola Virus Disease symptoms Patient denies exposure to infectious person. Patient denies travel to an Ebola-affected area in the 21 days before illness onset. No symptoms or risks identified at this time. Initial Sepsis Screen: Does the patient meet any 2 criteria? No. Patient's initial sepsis screen is negative. Does the patient have a suspected source of infection? No. Patient's initial sepsis screen is negative. Risk Assessment: Do you want to hurt yourself or someone else? Patient reports no desire to harm self or others. Onset of symptoms was February 16, 2021. 06:24 Method Of Arrival: Ambulatory bc5 06:24 Acuity: CRISTAL 3 bc5 Triage Assessment: 06:47 General: Appears uncomfortable, well groomed, Behavior is cooperative, anxious. Pain: bc5 Complains of pain in left eye and back. LABORATORY SPECIALIST: 06:48 LMP N/A - Post-menopause bc5 Historical: - Allergies: 06:28 Levaquin; bc5 06:28 Morphine; bc5 06:28 PENICILLINS; bc5 - PMHx: 06:28 Hyperlipidemia; Hypothyroidism; Pancreatitis; Anxiety; bc5 - PSHx: 06:28 section; Repair of inguinal hernia; bc5 - Immunization history:: Last tetanus immunization: < 5 years ago. - Social history:: Smoking status: Reported history of juuling and/or vaping. Screenin:46 Abuse screen: Denies threats or abuse. Denies injuries from another. Nutritional bc5 screening: No deficits noted. Tuberculosis screening: No symptoms or risk factors identified. Fall Risk Fall in past 12 months (25 points). No secondary diagnosis (0 pts). No IV (0 pts). Ambulatory Aid- None/Bed Rest/Nurse Assist (0 pts). Gait- Normal/Bed Rest/Wheelchair (0 pts) Mental Status- Oriented to own ability (0 pts). Total Núñez Fall Scale indicates Low Risk Score (25-44 pts). Fall prevention measures have been instituted. Side Rails Up X 2 Placed close to Nursing Station Family Present and informed to notify staff if they need to leave bedside. Assessment: 06:48 Neuro: No deficits noted. Cardiovascular: No deficits noted. Respiratory: No deficits bc5 noted. Derm: Wound noted left eye Wound is Laceration under left eye. 11:09 General: waiting on ENT to eval, Pt resting, son went home. Ice pack refilled, pt tc5 states helps with the pain.. 12:08 General: [place] Shi PATEL [place] [facility] [phone].. tc5 Vital Signs: 06:24 BP 155 / 109; Pulse 54; Resp 19; Temp 98.2(O); Pulse Ox 100% on R/A; Weight 69.4 kg bc5 (R); Height 5 ft. (152.40 cm) (R); Pain 7/10; 10:10 BP 128 / 76; Pulse 49; Resp 15; Pulse Ox 100% ; Pain 10/10; tc5 11:10 BP 128 / 83; Pulse 51; Resp 16; Pulse Ox 96% ; Pain 7/10; tc5 11:41 BP 126 / 98; Pulse 61; Resp 18; Temp 96.7; Pulse Ox 100% ; Pain 10/10; tc5 06:24 Body Mass Index 29.88 (69.40 kg, 152.40 cm) bc5 ED Course: 06:03 Patient arrived in ED. bp1 06:14 Ervin Harkins PA is PHCP. [facility] 06:14 Simón Medeiros MD is Attending Physician. [facility] 06:19 Sandra Schwartz, RN is Primary Nurse. bc5 06:28 Triage completed. bc5 06:47 Arm band placed on right wrist. bc5 06:47 Patient has correct armband on for positive identification. Placed in gown. Bed in low bc5 position. Call light in reach. Side rails up X 1. Adult w/ patient. 06:48 No provider procedures requiring assistance completed. bc5 07:31 CT Head C Spine In Process Unspecified. EDMS 07:53 EKG done, by ED staff, reviewed by Ervin VITALE. Wound care: ice pack applied. jl7 08:29 Facial Bones W/ Mpr In Process Unspecified. EDMS 08:29 Head C Spine Mpr Wo Con In Process Unspecified. EDMS 11:22 \\T\\1110 initiated a transfer with Christoph from the [facility]./ eb \\T\\1115 administrative approval given by Christoph Hernández Rn/ patient has been accepted to [facility] ER/ Dr. Jamin Pierre has accepted the patient without conference with Ervin Vitale. report to be called to [phone]. 11:38 Inserted saline lock: 20 gauge in right forearm, using aseptic technique. tc5 02/17 10:02 CT Head C Spine In Process Unspecified. EDMS Administered Medications: 02/16 06:46 Drug: Ativan (LORazepam) 1 mg Route: PO; bc5 07:44 Follow up: Response: No adverse reaction tc5 06:46 Drug: HYDROcodone-acetaminophen 5 mg-325 mg 2 tabs Route: PO; bc5 07:43 Follow up: Response: No adverse reaction tc5 10:22 Drug: fentaNYL (PF) 25 mcg Route: IM; Site: left gluteus; tc5 11:10 Follow up: Response: No adverse reaction tc5 12:02 Drug: Ativan (LORazepam) 0.5 mg Route: IVP; Site: right forearm; tc5 Outcome: 11:20 ER care complete, transfer ordered by . jackie 12:14 Patient left the ED. tc5 Signatures: Dispatcher [employer] EDMS Ervin Harkins PA PA jmm Leal, Jahala, RN RN jl7 Mary Kate Cooper Brittany bp1 Corado, Bella, RN RN bc5 Tatianna Villalba, RN RN tc5 Corrections: (The following items were deleted from the chart) 07:54 07:31 In radiology for Facial Bones W/ MPR+CT.RAD.BRZ. EDMS EDMS
--- NOTE | 2021-02-16 11:20 | EDPHYS ---
Physician Documentation [facility] Name: Pamela Machado Age: 50 yrs Sex: Female : 1970 Arrival Date: 02/16/2021 Time: 06:03 Bed 15 Private MD: ED Physician Simón Medeiros HPI: 02/16 06:50 This 50 yrs old Female presents to ER via Ambulatory with complaints of Fall jmm Injury, Facial Injury, Eye Injury. 06:50 Onset: The symptoms/episode began/occurred acutely, just prior to arrival. Associated jmm injuries: The patient sustained injury to the head. The patient has not experienced similar symptoms in the past. This is a 50-year-old female with history of hyperlipidemia hypothyroidism, pancreatitis, anxiety the presents emerged department with complaints of left-sided facial pain, and left eye pain following a fall which occurred earlier this morning. Patient states she tripped on an unknown object in her dark room hitting her head and face against an unknown object. Patient mainly complains of left eye pain.. 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 - Social history:: Smoking status: Reported history of juuling and/or vaping. ROS: 06:50 Constitutional: Negative for fever, chills, and weight loss, Cardiovascular: Negative jmm for chest pain, palpitations, and edema, Respiratory: Negative for shortness of breath, cough, wheezing, and pleuritic chest pain. 06:50 Eyes: Positive for pain. 06:50 All other systems are negative. Exam: 06:50 Constitutional: This is a well developed, well nourished patient who is awake, alert, jmm and in no acute distress. 06:50 Neck: Trachea midline, Supple Chest/axilla: Normal chest wall appearance and motion. Cardiovascular: Regular rate and rhythm. No edema appreciated Respiratory: Normal respirations, no respiratory distress appreciated Abdomen/GI: Non distended, soft Back: Normal ROM Skin: General appearance color normal MS/ Extremity: Moves all extremities, no obvious deformities appreciated, no edema noted to the lower extremities Neuro: Awake and alert, normal gait Psych: Behavior is normal, Mood is normal, Patient is cooperative and pleasant 06:50 Head/face: Abrasion to the left inferior orbit,. 06:50 Eyes: Extraocular movements: intact throughout, Conjunctiva: subconjunctival hemorrhage(s), seen in the left eye, at 3 o'clock. Vital Signs: 06:24 BP 155 / 109; Pulse 54; Resp 19; Temp 98.2(O); Pulse Ox 100% on R/A; Weight 69.4 kg bc5 (R); Height 5 ft. (152.40 cm) (R); Pain 7/10; 10:10 BP 128 / 76; Pulse 49; Resp 15; Pulse Ox 100% ; Pain 10/10; tc5 11:10 BP 128 / 83; Pulse 51; Resp 16; Pulse Ox 96% ; Pain 7/10; tc5 11:41 BP 126 / 98; Pulse 61; Resp 18; Temp 96.7; Pulse Ox 100% ; Pain 10/10; tc5 06:24 Body Mass Index 29.88 (69.40 kg, 152.40 cm) bc5 MDM: 06:[address] [facility] 11:18 Data reviewed: vital signs, nurses notes. Counseling: I had a detailed discussion with jackie the patient and/or guardian regarding: the historical points, exam findings, and any diagnostic results supporting the discharge/admit diagnosis, lab results, radiology results, the need to transfer to another facility. ED course: I discussed the patient with Dr Mas whom recommended transfer due to entrapment. Patient was accepted to [facility]. 02/16 07:59 Order name: Facial Bones W/ Mpr; Complete Time: 08:47 EDMS 02/16 07:59 Order name: Head C Spine Mpr Wo Con; Complete Time: 08:59 EDMS 02/16 07:54 Order name: EKG - Nurse/Tech; Complete Time: 07:54 jl7 02/16 07:54 Order name: Ice pack; Complete Time: 07:54 7 02/16 11:04 Order name: Saline Lock; Complete Time: 11:57 [facility] Administered Medications: 06:46 Drug: Ativan (LORazepam) 1 mg Route: PO; bc5 07:44 Follow up: Response: No adverse reaction tc5 06:46 Drug: HYDROcodone-acetaminophen 5 mg-325 mg 2 tabs Route: PO; bc5 07:43 Follow up: Response: No adverse reaction tc5 10:22 Drug: fentaNYL (PF) 25 mcg Route: IM; Site: left gluteus; tc5 11:10 Follow up: Response: No adverse reaction tc5 12:02 Drug: Ativan (LORazepam) 0.5 mg Route: IVP; Site: right forearm; tc5 Disposition Summary: 02/16/21 11:20 Transfer Ordered Transfer Location: [facility] Reason: Higher level of care jmm Condition: Stable jmm Problem: new jmm Symptoms: are unchanged jmm Accepting Physician: Dr. Hunt(02/16/21 12:14) tc5 Diagnosis - Fracture of orbital floor - Entrapment jmm Forms: - Medication Reconciliation Form jmm - SBAR form jmm Addendum: 02/19/2021 07:12 Co-signature as Attending Physician, Simón Medeiros MD. [facility] Signatures: Dispatcher [employer] EDMS Ervin Harkins PA PA jmm Leal, Jahala, RN RN jl7 Simón Medeiros MD MD [id number] Sandra Schwartz RN RN bc5 Tatianna Villalba RN RN tc5 Corrections: (The following items were deleted from the chart) 02/16 07:54 06:38 Facial Bones W/ MPR+CT.RAD.BRZ ordered. EDMS EDMS 12:14 11:20 Dr. Marilee mejia tc5
[2021-02-16] MEDS ORDERED: LORazepam 2 MG/ML VIAL ONE (12:25)
[2021-02-16 12:28] VITALS: BP 126/98; TEMP 96.7; O2SAT 100
--- NOTE | 2021-02-17 18:11 | CON ---
Date of Consultation: 02/16/2021 Chief Complaint: Left eye pain and blurred vision. History Of Present Illness: The patient is a 50-year-old female, who presented acutely to the emergency room after falling. She states that she tripped on an unknown object in a dark room and she fell forward hitting her head and face against what she thinks was the corner of a bookshelf. She immediately had acute left eye pain and blurred vision. She was seen by the emergency room and a CAT scan was ordered, and I was consulted for further evaluation. Upon arrival to bedside, the patient was in no acute distress, but she was complaining of left blurry vision and significant eye pain. She denied any bleeding, swelling, or other ENT complaints today. Past Medical History: Hyperlipidemia, hypothyroidism, pancreatitis, and anxiety. Past Surgical History: Repair of inguinal hernia and section. Allergies: LEVAQUIN, MORPHINE, AND PENICILLIN. Medications: The patient denies being on any current home medications. Social History: Denies alcohol, tobacco, or illicit drugs. Review of Systems: Eyes: Positive for left eye blurred vision and pain. Ears: Denies otorrhea, otalgia, or mastoid tenderness. Nose: Denies nasal pain, rhinorrhea, nasal congestion, postnasal drip. Throat: Denies swelling, throat pain or dysphagia. Neck: Denies neck mass, swelling. Physical Examination: Vital Signs: Stable. No abnormalities. Eyes: Right eye is normal. Right eye extraocular muscles are intact and there is no evidence of trauma. Left eye, the patient has a small superficial laceration noted inferior eyelid. No evidence of hyphema or retrobulbar hematoma. The patient had significant blurred and double vision when tracking my finger with her left eye. She also had significant left eye pain and could not complete the gaze tracking part of the exam. ENT: Intranasal speculum exam demonstrated moist mucosa. Midline septum and oral cavity exam demonstrated moist mucosa. Midline uvula. Neck: Supple. Trachea midline. No abnormalities. Laboratory Data: CT exam of the orbits had demonstrated depressed left inferior orbital floor fracture with depression of the inferior rectus muscle into the left maxillary sinus. Concern for entrapment. Diagnosis: Left orbital blowout fracture with significant depressed fracture of the left inferior orbital floor. Plan: We will transfer to [facility] for surgical repair. JOELLEN/RICK Voice ID: [id number] Report ID: [id number] [facility]ITAL[facility]nez
== END 2021-02-16 12:14 | disposition short-term general hospital (02) ==
LOC: ER 06:02
DX: S02.32XA Fracture of orbital floor, left side, initial encounter for closed fracture (principal); W01.198A Fall on same level from slipping, tripping and stumbling with subsequent striking against other object, initial encounter; Z88.0 Allergy status to penicillin; Z88.1 Allergy status to other antibiotic agents; Z88.5 Allergy status to narcotic agent; E78.5 Hyperlipidemia, unspecified; E03.9 Hypothyroidism, unspecified; F41.9 Anxiety disorder, unspecified
CPT/HCPCS: 70450; 70486; 72125; 76377; 93005; 96372; 96374; 99284; J3010